=== PATIENT | female | born 1940 | race Caucasian/White ===

== ENCOUNTER 2019-07-31 14:28 | Inpatient (IN) ==
[2019-07-31 14:49] LABS: ALLEN TEST YES; BE -11.3 mmoll (-3.0-3.0); BLOOD TYPE ARTERIAL; HCO3-(ACT) 16.1 mmoll (20.0-26.0); O2(CT) 10.3 mL/dL (15.0-23.0); O2HB 96.1 % (95.0-99.0); PO2(98.6) 182 mmHg (60-100); SAMPLE BLOOD; SAO2 99.9 % (95.0-100.0); THB 7.3 g/dL (11.5-17.4); pH(98.6) 7.47 (7.35-7.45)
[2019-07-31 14:50] LABS: MODALITY NRB; PCO2(98.6) 15 mmHg (35-45)
[2019-07-31] MEDS ORDERED: PROTONIX ONE (15:08)
[2019-07-31 15:09] LABS: BASO# 0.05 X1000 (0.0-0.2); BASO% 0.2 % (0.0-0.8); EOS# 0.01 X1000 (0.0-0.7); HEMATOCRIT 23.7 % (37.0-47.0); HEMOGLOBIN 7.4 g/dL (12.0-16.0); IMM GRAN% 0.7 % (0.0-0.5); LYMPH% 6.5 % (20.5-51.1); MCH 32.2 PG (27-31); MCHC 31.2 g/dL (33-37); MONO# 1.89 X1000 (0.11-0.59); MONO% 6.5 % (1.7-9.3); NEUT# 25.05 X1000 (1.4-6.5); NEUT% 86.1 % (42.2-75.2); PLT 248 X1000 (130-400); RDW 14.5 % (11.5-14.5)
[2019-07-31 15:15] LABS: INR 2.15; PROTIME 24.5 Seconds (11.0-16.0); PTT 24.7 Seconds (22.3-41.8)
--- NOTE | 2019-07-31 15:20 | Diag Imaging Result Doc PS360 ---
EXAM: CHEST-1 VIEW INDICATION: sepsis protocol TECHNIQUE: One view COMPARISON: None. FINDINGS: Electrode pads project over the left chest wall. The lungs are grossly clear. There is no discrete pleural fluid collection or pneumothorax. The cardiomediastinal silhouette and central vasculature are grossly unremarkable accounting for magnification from AP technique. IMPRESSION: No evidence of acute pathology by plain radiograph. Electronically signed by Margarito Mayen 07/31/2019 3:18 PM
[2019-07-31] MEDS ORDERED: ZOSYN 4.5 GM in NS 100 ML IV ONE (15:24)
[2019-07-31] MEDS ORDERED: VANCOMYCIN 1 GM/NS 1 GM/250 ML IVPB IV ONE (15:24)
--- NOTE | 2019-07-31 15:29 | PROVIDER DOCUMENTATION ---
HPI-General Adult - General Chief Complaint: Unresponsive Stated Complaint: respiratory distress Time Seen by Provider: 07/31/19 15:22 Source: family, EMS notes reviewed Allergies/Adverse Reactions: Patient Allergies Allergy/AdvReac Type Severity Reaction Status Date / Time codeine [Codeine] Allergy Intermediate Unknown Verified 06/29/12 13:09 Home Medications: Home Medication List Medication Instructions Recorded Confirmed Last Taken Type Alprazolam [Xanax] 5 mg PO DAILY 06/29/12 06/29/12 07/01/12 05:00 History Cholecalciferol (Vitamin D3) 400 unit PO DAILY 06/29/12 06/29/12 06/30/12 08:00 History [Vitamin D3] Citalopram [Celexa] 40 mg PO HS 06/29/12 06/29/12 06/30/12 19:00 History Esomeprazole Magnesium [Nexium] 40 mg PO HS 06/29/12 06/29/12 06/29/12 History Glucosamine Sulfate Dipot Chlr 2 PO DAILY 06/29/12 06/29/12 06/30/12 08:00 History [Glucosamine] [place]urtis-3S/Dha/Epa/Fish Oil [Fish 1 PO DAILY 06/29/12 06/29/12 06/30/12 08:00 History Oil 1,200 mg Softgel] Valsartan [Diovan] 160 mg PO DAILY 06/29/12 06/29/12 07/01/12 05:00 History - History of Present Illness -Gen Adult Nature of Presenting Problems: Patient was brought in by EMS unresponsive and on non rebreather but making minial effort at breathing and with a pulse. Family later stated that she has a h/o HTN and dementia but had been active until she had a fracture to her left lower extremity recently and her health deteriorated after then. She had been discharged from the hospital, presently in a rehab facility and was brought here today from the facility. Location of Pain/Injury: reports: other (unresponsive) Pain Radiation: reports: no radiation Quality of Pain: reports: none Onset/Duration: reports: this afternoon Timing: reports: still present Context/Activities at Onset: reports: none Modifying Factors: improves with: nothing Review of Systems - Adult - REVIEW OF SYSTEMS - ADULT ROS:: unobtainable per condition Constitutional: reports: joanne Past History - Adult - PAST MEDICAL HISTORY-ADULT Review of Records: reports: Nursing Assessment Review, Medications Reviewed, Social history reviewed & non-contributory. Cardiovascular: reports: HTN Respiratory: reports: denies history Gastrointestinal: reports: denies history Musculoskeletal: reports: orthopedic injury Neurological: reports: dementia Psychiatric: reports: denies history Endocrine/Immune: reports: denies history - FAMILY HISTORY Family History: reviewed, not pertinent - SOCIAL HISTORY Smoking: denies Substance Use: none/never Alcohol Use Frequency: never Physical Exam-General - CONSTITUTIONAL General Appearance: obtunded - HEAD, EARS, NOSE, MOUTH & THROAT HENMT: normocephalic/atraumatic - RESPIRATORY Respiratory: lungs clear, normal breath sounds - CARDIOVASCULAR Cardiovascular: regular rate, rhythm, no edema, JVD - GASTROINTESTINAL (ABDOMEN) Abdominal Exam: soft, no organomegaly - MUSCULOSKELETAL Back Exam: other (splinting of the left lower extremity noted) Extremity: no pedal edema, other (cold distal upper extremities) - SKIN Integumentary: normal color - NEUROLOGIC Neurologic: other (unresponsive but responds to painful stimulus) - PSYCHIATRIC Psych/Mental Status: other (unresponsive) Progress - PLAN OF CARE/RESULTS Progress/Plan/Lab Results: Vital Signs - 8 hr 07/31/19 14:47 Pulse Rate 112 H Respiratory Rate 38 H Blood Pressure 104/67 O2 Sat by Pulse Oximetry 99 Laboratory Results - last 24 hr 07/31/19 07/31/19 07/31/19 14:39 14:46 14:46 WBC 29.10 H RBC 2.30 L Hgb 7.4 L Hct 23.7 L MCV 103.0 H MCH 32.2 H MCHC 31.2 L RDW Std Deviation 14.5 Plt Count 248 MPV 12.0 H Immature Gran % (Auto) 0.7 H Neut % (Auto) 86.1 H Lymph % (Auto) 6.5 L [place] % (Auto) 6.5 Eos % (Auto) 0.0 Baso % (Auto) 0.2 Immature Gran # (Auto) 0.20 H Neut # (Auto) 25.05 H Lymph # (Auto) 1.90 [place] # (Auto) 1.89 H Eos # (Auto) 0.01 Baso # (Auto) 0.05 PT 24.5 H INR 2.15 PTT (Actin FS) 24.7 Specimen Type ARTERIAL Sample Site R RADIAL pH 7.47 H pCO2 15 L* pO2 182 H HCO3 16.1 L Base Excess -11.3 L Oxyhemoglobin 96.1 ABG O2 Sat (Calculated) 10.3 L ABG O2 Saturation 99.9 ABG Carboxyhemoglobin 1.80 ABG Methemoglobin 2.0 H Nikko Test YES A-a O2 Difference 512.0 Total Hemoglobin 7.3 L Lactate 10.90 H* Liter Flow 15.0 Blood Gas Modality NRB FiO2 % 100.0 Orders Category Date Time Status Cardiac Monitoring DIRECTED Care 07/31/19 14:45 Active IV Insertion ORDERED Care 07/31/19 14:45 Completed Notify MD of + Sepsis Screen NOW Care 07/31/19 14:45 Active Notify Physician As Ordered Care 07/31/19 14:45 Active CHEST-1 VIEW [RAD] Stat Exams 07/31/19 14:[address] HEAD W/O CONTRAST [CT] Stat Exams 07/31/19 15:06 Ordered ABG [RESP] Routine Lab 07/31/19 14:39 Completed BLOOD CULTURE [BLDCUL] Stat Lab 07/31/19 14:45 Results BNP [PRO B-NATRIURETIC PEPTIDE] Stat Lab 07/31/19 14:46 Received CBC WITH DIFF [HEME] Stat Lab 07/31/19 14:46 Results CK PROFILE [SP CHEM] Stat Lab 07/31/19 14:46 Received COMPREHENSIVE METABOLIC PANEL [CHEM] Stat Lab 07/31/19 14:46 Received LACTATE, PLASMA [CHEM] Q3H Lab 07/31/19 14:46 Received LACTATE, PLASMA [CHEM] Q3H Lab 07/31/19 17:45 Uncollected LACTATE, PLASMA [CHEM] Q3H Lab 07/31/19 20:45 Uncollected PROTIME WITH INR [COAG] Stat Lab 07/31/19 14:46 Completed PTT [COAG] Stat Lab 07/31/19 14:46 Completed TROPONIN T Stat Lab 07/31/19 14:46 Received TYPE & SCREEN [BBK] Stat Lab 07/31/19 15:23 Ordered URINALYSIS W/POSS RFLX CULT [URINALYSIS] Stat Lab 07/31/19 15:23 Ordered Pantoprazole [Protonix] Med 07/31/19 15:08 Discontinued 40 mg .ROUTE .STK-MED ONE Oxygen Device Stat Oth 07/31/19 14:45 Active Result Diagrams: 08/01/19 04:35 08/01/19 04:35 - REASSESSMENT Reassessment #1 Time Reassessed: 03:45 Status: improving (Patient now able to open her eyes but non verbal, respond to painful stimulus. Family had earlier on discussed DNI, DNR status with Dr Myrick and also discussed that with me at this time. bright red blood noted on patients stool by nurses while cleaning her up) Reassessment #2 Time Reassessed: 04:45 Status: improving (awake, remains non verbal, responds to painful stimulus. Still tachyneic , tarchycardic and hypotensive. Had neg CT head. CTA pulmunary not done due to low GFR. Discussed admission with family and eventually discussed case with Dr Castano.) - XRAY 1 XRAY Study: Chest ( EXAM: CHEST-1 VIEW INDICATION: sepsis protocol TECHNIQUE: One view COMPARISON: None. FINDINGS: Electrode pads project over the left chest wall. The lungs are grossly clear. There is no discrete pleural fluid collection or pneumothorax. The cardiomediastinal silhouette and central vasculature are grossly unremarkable accounting for magnification from AP technique. IMPRESSION: No evidence of acute pathology by plain radiograph. Electronically signed by Margarito Mayen 07/31/2019 3:18 PM) - CT/MRI 1 CT Study: Head ( EXAM: CT HEAD W/O CONTRAST INDICATION: ams TECHNIQUE: This exam was performed using automated exposure control, adjustment of mA or kV according to patient size, and/or use of iterative reconstruction technique. COMPARISON: None. FINDINGS: There is extensive patchy low attenuation in the periventricular and subcortical white matter suggesting advanced microangiopathy. There is a small chronic lacunar infarct versus a Virchow-Kayode space involving the basal ganglion on the right. There is probably encephalomalacia at the anterior temporal lobe on the right and possibly on the left. There is moderate diffuse brain atrophy. There is no definite acute infarct given the limited sensitivity of CT versus MRI. There is no discrete intracranial mass, mass effect, or intracranial hemorrhage. The surrounding soft tissues and bony structures are essentially unremarkable. IMPRESSION: Extensive chronic appearing changes as detailed above. No definite acute intracranial pathology by CT. Electronically signed by Margarito Mayen 07/31/2019 4:23 PM 07/31/19 0707 Interpreting Physician: Margarito Mayen MD Dictated Date/Time: 07/31/19 1620 cc: Vignesh Rushing MD; None,PCP) - CONSULTS/PCP/HOSPITALIST Notification Time Discussed: 05:00 Consult Disposition: Admit (Discussed with Dr castano who accepted admission) Departure - Departure Date of Disposition Decision: 07/31/19 Time of Disposition Decision: 16:57 DIAGNOSIS: Unresponsive, Sepsis associated hypotension GI bleed Qualifiers: GI bleed type/associated pathology: anorectal hemorrhage Qualified Code(s): K62.5 - Hemorrhage of anus and rectum Disposition: ADMITTED INPATIENT 09 Certified Medical Emergency: Emergent Condition: Critical - Critical Care Note This patient required my direct & personal management of CC.: Yes Total Time (mins): 50 Critical Care Statement: This patient required my direct personal management to treat or rule out processes, the absence of which, could potentiallly result in sudden, clinically significant life or limb threatening deterioration. Attestation - Physician/ PRIMITIVO Attestation Patient care was provided by Advanced Practice Provider:: No The physician spent face to face time with patient:: Yes Advanced Practice Provider documentation review:: Supervising physician onsite a nd consulted in the evaluation and care of this patient. The physician did have a face to face encounter with the patient.
[2019-07-31 15:31] LABS: URINE SOURCE CATH
[2019-07-31 15:36] LABS: BILIRUBIN URINE NEGATIVE (NEGATIVE); BLOOD URINE TRACE (NEGATIVE); COLOR YELLOW; GLUCOSE URINE NEGATIVE (NEGATIVE); KETONE URINE NEGATIVE (NEGATIVE); LEUKOCYTES URINE NEGATIVE (NEGATIVE); NITRITE URINE NEGATIVE (NEGATIVE); PH URINE 5.5; PROTEIN URINE TRACE mg/dL (NEGATIVE); TURBIDITY URINE CLEAR (CLEAR); UR EPITHELIAL CELLS <10 /HPF (<10); URINE BACTERIA NEGATIVE /HPF; URINE RBC <10 /HPF (<10); URINE WBC <10 /HPF (<10); UROBILINOGEN URINE 2 mg/dL (NORMAL)
[2019-07-31 15:37] LABS: BANDS 4 % (0-1); LYMPHS 14 % (21-51); MONO 3 % (1-9); NRBC 3 % (0-0); SEGS 79 % (42-75)
[2019-07-31 15:38] LABS: LARGE PLATELETS 2+; MICROCYTOSIS 1+
--- NOTE | 2019-07-31 15:39 | ED EKG INTERP ---
This chart was entered by Jaquan Antunez Scribe, acting as scribe for Vignesh Rushing MD. EKG Interpretation - EKG Time of EKG reading by physician:: 14:48 EKG Read and Signed by:: Vignesh Rushing EKG Interpretation (*Must complete 3 of following elements*): Abnormal Rate: 109 Rhythm: sinus tachycardia Comments: cannot rule out anterior infarct, age undetermined Attestation - Physician/ PRIMITIVO Attestation Patient care was provided by Advanced Practice Provider:: No The physician spent face to face time with patient:: Yes Advanced Practice Provider documentation review:: Supervising physician onsite and consulted in the evaluation and care of this patient. The physician did have a face to face encounter with the patient. This chart was documented by the indicated scribe, (Jaquan Antunez Scribe) and accurately reflects the services I performed and decisions made by me, Vignesh Rushing MD, as attested by the provider's signature.
[2019-07-31 16:02] LABS: ALB/GLOB RATIO 1.4; ALBUMIN 2.7 g/dL (3.5-5.0); CALCIUM 9.4 mg/dL (8.8-10.2); CREATININE 2.9 mg/dL (0.5-0.9); TOTAL BILIRUBIN 1.1 mg/dL (0.20-1.00); TOTAL PROTEIN 4.7 g/dL (6.3-8.3)
--- NOTE | 2019-07-31 16:26 | Diag Imaging Result Doc PS360 ---
EXAM: CT HEAD W/O CONTRAST INDICATION: ams TECHNIQUE: This exam was performed using automated exposure control, adjustment of mA or kV according to patient size, and/or use of iterative reconstruction technique. COMPARISON: None. FINDINGS: There is extensive patchy low attenuation in the periventricular and subcortical white matter suggesting advanced microangiopathy. There is a small chronic lacunar infarct versus a Virchow-Kayode space involving the basal ganglion on the right. There is probably encephalomalacia at the anterior temporal lobe on the right and possibly on the left. There is moderate diffuse brain atrophy. There is no definite acute infarct given the limited sensitivity of CT versus MRI. There is no discrete intracranial mass, mass effect, or intracranial hemorrhage. The surrounding soft tissues and bony structures are essentially unremarkable. IMPRESSION: Extensive chronic appearing changes as detailed above. No definite acute intracranial pathology by CT. Electronically signed by Margarito Mayen 07/31/2019 4:23 PM
[2019-07-31] MEDS ORDERED: NS 1,000 ML IV ONE ×2 (16:35→22:13)
[2019-07-31] MEDS ORDERED: NS 2,000 ML IV ONE (16:51)
[2019-07-31] MEDS ORDERED: NS 500 ML IV ONE (17:56)
--- NOTE | 2019-07-31 20:06 | PROGRESS NOTE ---
DATE: 07/31/2019 ADVANCED CARE DIRECTIVE NOTE: I discussed with the family, which I believe is 2 sons and her I believe and either daughter or [id number]. They do not want any aggressive measures in the setting of life support such as mechanical ventilation or CPR and will allow a natural . That is what they have agreed upon. We will continue to do aggressive measures up until that point. cc: Hieu Castano MD
--- NOTE | 2019-07-31 20:58 | Diag Imaging Result Doc PS360 ---
EXAM: CT ABDOMEN/PELVIS W/O CONTRAST INDICATION: septic shock TECHNIQUE: This exam was performed using automated exposure control, adjustment of mA or kV according to patient size, and/or use of iterative reconstruction technique. COMPARISON: None. FINDINGS: There is bibasilar atelectasis, more prominent on the left and there is a small left pleural effusion. There is a small to moderate-sized pericardial effusion. The liver, gallbladder, spleen, and pancreas are unremarkable. There is mild nodularity of the left adrenal gland, statistically most likely underlying adrenal adenoma. The kidneys are somewhat atrophic but are essentially unremarkable, otherwise. There is a Lilly catheter in the urinary bladder and the bladder is nondistended. The reproductive tract is grossly unremarkable as imaged. There is marked rectal wall thickening and only slightly milder wall thickening involving the distal sigmoid colon. This suggests severe proctitis/colitis. There is severe dilation of the transverse colon measuring over 6 cm in diameter. Developing toxic megacolon should be considered. However, some haustral folds remain in this dilated segment. The appendix is normal. There is mild distention of the stomach and there is fluid in the distal esophagus suggesting reflux. There is no small bowel distention. There is trace free fluid layering in the pelvis and tracking around the spleen. There is no evidence of acute osseous abnormality. IMPRESSION: 1.Severe rectal wall thickening and only slightly less severe thickening of the distal sigmoid colonic wall indicating severe proctitis/colitis. 2.Marked distention of the transverse colon. Developing toxic megacolon should be considered. However, there is still haustral folding in this dilated segment. 3.Trace ascites tracking around the spleen and layering in the pelvis. 4.Small to moderate-sized pericardial effusion. 5.Trace left pleural effusion and left basilar atelectasis. Electronically signed by Margarito Mayen 07/31/2019 8:55 PM
[2019-07-31] MEDS ORDERED: VANCOMYCIN IV PER PHARMACY MISC SCH (22:13)
[2019-07-31] MEDS ORDERED: PROTONIX IV SCH (22:13)
[2019-07-31] MEDS ORDERED: SODIUM CHLORIDE 0.9% INJ SCH (22:13)
[2019-07-31] MEDS: ZOSYN 2.25 GM in NS 50 ML IV SCH (22:27)
--- NOTE | 2019-07-31 23:58 | HISTORY AND PHYSICAL ---
HISTORY OF PRESENT ILLNESS: This is a 79-year-old female who came in from the [facility] at [facility] with minimal responsiveness, respiratory distress. Initially, it was not known who she is. Patient is a patient with significant dementia per the family. She has actually been doing fairly well, according to them. She had surgery at [place] for a I believe a tibia fracture and she had a gucci placed I think per Dr. Vázquez and was treated as such. Like I said, she had been in her usual state of health and then today she has become unresponsive and confused, hypoxic. She has multiple things going on, anemia, acute renal failure, acute respiratory failure, effectively septic but unclear what her source is. Urine does not look infected. Chest x-ray is clear, but she is clearly in respiratory failure unfortunately. So she was admitted for acute hypoxic respiratory failure, sepsis, symptomatic anemia, acute kidney injury with a recent tibia fracture repair. PAST MEDICAL HISTORY: Supposedly only dementia, hypertension. No diabetes. No heart disease. Reflux it looks like. PAST SURGICAL HISTORY: Again, she has had the tibia fracture. It looks like she has had a lumpectomy so she has had a history of breast cancer; family was not descriptive of that but based on our records here per Dr. Bernard. SOCIAL HISTORY: No tobacco. No ethanol. She typically lives at home, is not in assisted living. She has got fairly significant dementia but is able to be managed at home, is able to get up and around. ALLERGIES: Codeine. MEDICATIONS: Her medications have not been verified but are Celexa 40, Diovan 160, fish oil 1 daily, glucosamine 2 daily, Nexium 40 at bedtime, vitamin D3 of 400 units daily, Xanax 0.25. We do not frequency, maybe daily. REVIEW OF SYSTEMS: Constitutional: There has not been any weight loss, but she has very poor appetite and she is very difficult to stay hydrated. Cardiovascular: No chest pains. Pulmonary: As described. Gastrointestinal: No nausea, vomiting, diarrhea. Hematologic: No bleeding. Genitourinary: No dysuria. Neurologic: No syncopal episodes. No weakness episodes prior to the onset of her distress today. Otherwise, negative 10 point review of system. PHYSICAL EXAMINATION: VITAL SIGNS: Blood pressure 104/67, heart rate is 112, respiratory rate of 38, temperature is 101.3 degrees. She is 99% on a non-rebreather. GENERALLY: Well-developed female appears in moderate distress, is not responsive although opens eyes and tracks. HEENT: Eye exam: Pupils equal, round, reactive to light. Extraocular movements were intact. Sclerae are anicteric. CARDIOVASCULAR: She is tachycardic with a loud pronounced S1, S2. She has a blowing 3/6 holosystolic murmur best heard at the apex. GASTROINTESTINAL: Soft, nontender, nondistended. Bowel sounds are positive. NEUROLOGIC: Limited but there were no focal deficits, but again, very minimally responsive. MUSCULOSKELETAL: Difficult to assess, but again, at least 3/5 in all 4 extremities. SKIN: There were no noted rashes. Her incision sites looked good. Did not look like there was clearly any infection associated with that. She did have some dark, kind of ecchymotic changes to her toes. She apparently has some heel ulcers that were covered on the right heel. LABORATORY DATA: Her hemoglobin and hematocrit are 7 and 23 with an MCV of 103 with a white count of 29,000. Her INR is 2. Her D-dimer is 9.7. Blood gas, pH 7.47, pCO2 of 15, PaO2 of 182. BUN and creatinine are 74 and 2.9, glucose of 152. T bilirubin was 1.1. ProBNP was 24,501. Chest x- ray was read as clear. Head CT showed significant atrophy but no acute stroke. ASSESSMENT: 1. This is a 79-year-old female with recent surgeries, severe dementia, presenting essentially with shock. Presume sepsis although unclear source at this point. It is possible it is still pneumonia that has just not been well visualized on chest x-ray especially with her level of hypoxia. It could also be related to postop infection. We have obtained blood and urine cultures. She has been started on broad-spectrum antibiotics, which I will continue the vancomycin and Zosyn. I think that is appropriate in this setting. We will get CT of her chest without contrast to better evaluate for pneumonia. We will screen for influenza. We will get Orthopedics to evaluate her lower extremity to see if there is any concern over infection related to her surgery which will have to be most likely handled with her primary surgical service. She is under the sepsis protocol getting serial lactates and continue hydration for the time. 2. Acute kidney injury. It is probably secondary to sepsis. We are going to hold her NIK/ARB. Be careful with vancomycin in this setting. We may even switch her to daptomycin, although now we are going to leave her on the vancomycin because of concerns over pulmonary infection potentially. Continue hydration. Check urine electrolytes, renal ultrasound and follow. 3. Acute hypoxic respiratory failure. Again, a primary issue or secondary issue due to sepsis. We also have to consider the possibility of a VTE. It is not clear that she has been on any anticoagulation. Family is not aware of them. I do not have records that show that she was on any DVT prophylaxis or treatment. We will get lower extremity Dopplers and we will get a CT. We will evaluate for large clots even without contrast and V/Q scan if necessary and we will at least start DVT prophylaxis in this setting. 4. Dementia. Encephalopathy less likely secondary to multiple issues going on at once and with her underlying dementia. 5. Anemia likely related to acute blood loss. We will go ahead and transfuse and follow closely. I am not entirely sure why she is coagulopathic at this time. Her platelets are intact so we will continue to follow closely. This is a service admission. I do not think she has a local provider. TIME: 32 minute critical care time for acute respiratory failure, sepsis, and volume resuscitation. cc: Hieu Castano MD MTDD
[2019-08-01] MEDS ORDERED: VANCOMYCIN 500 MG/NS 500 MG/100 ML IVPB IV ONE ×2 (00:30→12:30)
[2019-08-01] MEDS: ZOSYN 2.25 GM in NS 50 ML IV SCH (04:00)
[2019-08-01 05:15] LABS: ALLEN TEST YES; BE -10.2 mmoll (-3.0-3.0); BLOOD TYPE ARTERIAL; PO2(98.6) 212 mmHg (60-100); SAMPLE BLOOD; pH(98.6) 7.42 (7.35-7.45)
[2019-08-01 05:16] LABS: MODALITY NRB; PCO2(98.6) 18 mmHg (35-45)
[2019-08-01 05:35] LABS: BASO# 0.21 X1000 (0.0-0.2); BASO% 1.3 % (0.0-0.8); CREATININE 3.3 mg/dL (0.5-0.9); EOS# 0.01 X1000 (0.0-0.7); EOS% 0.1 % (0.0-10.0); HEMATOCRIT 25.9 % (37.0-47.0); HEMOGLOBIN 8.4 g/dL (12.0-16.0); IMM GRAN# 0.46 X1000 (0.0-0.04); IMM GRAN% 2.8 % (0.0-0.5); LYMPH# 2.77 X1000 (1.2-3.4); LYMPH% 17.1 % (20.5-51.1); MCH 31.1 PG (27-31); MCHC 32.4 g/dL (33-37); MCV 95.9 FL (81-99); MONO# 1.57 X1000 (0.11-0.59); MONO% 9.7 % (1.7-9.3); MPV 12.3 FL (7.4-10.4); NEUT# 11.18 X1000 (1.4-6.5); PLT 138 X1000 (130-400); POTASSIUM 4.8 mmol/L (3.5-5.1); RDW 16.1 % (11.5-14.5)
[2019-08-01] MEDS ORDERED: LOVENOX SUBQ SCH (06:00)
[2019-08-01 06:25] LABS: CALCIUM 7.8 mg/dL (8.8-10.2)
[2019-08-01 07:13] LABS: ANISOCYTOSIS 1+; BANDS 19 % (0-1); LYMPHS 7 % (21-51); MONO 3 % (1-9); NRBC 23 % (0-0); POLYCHROM OCCASIONAL; SEGS 69 % (42-75)
[2019-08-01] MEDS ORDERED: MAXIPIME 2 GM in NS 100 ML IV SCH (07:30)
[2019-08-01] MEDS ORDERED: MAXIPIME IV SCH (07:39)
[2019-08-01] MEDS ORDERED: NS IV SCH (07:39)
[2019-08-01] MEDS ORDERED: MAXIPIME 1 GM in NS 50 ML IV SCH (08:00)
[2019-08-01] MEDS: FLAGYL 500 MG/NS 500 MG/100 ML IVPB IV SCH ×2 (08:12→14:44)
--- NOTE | 2019-08-01 08:23 | EKG Report ---
Test Performed on : 07/31/2019 2:48:31 PM Test Reason : unresponsive, respiratory distress Blood Pressure : / mmHG Vent. Rate : 109 BPM Atrial Rate : 109 BPM P-R Int : 130 ms QRS Dur : 074 ms QT Int : 326 ms P-R-T Axes : 050 031 069 degrees QTc Int : 439 ms Sinus tachycardia. Cannot rule out Anterior infarct (cited on or before 29-JUN-2012) Abnormal ECG When compared with ECG of 29-JUN-2012 12:50, Vent. rate has increased BY 50 BPM Unconfirmed Result
--- NOTE | 2019-08-01 08:24 | EKG Report ---
Test Performed on : 07/31/2019 3:32:00 PM Test Reason : repeat ekg for respiratory distress/unresponsive Blood Pressure : / mmHG Vent. Rate : 107 BPM Atrial Rate : 107 BPM P-R Int : 128 ms QRS Dur : 078 ms QT Int : 372 ms P-R-T Axes : 049 027 069 degrees QTc Int : 496 ms Sinus tachycardia. with premature atrial complexes. Otherwise normal ECG When compared with ECG of 31-JUL-2019 14:48, (Unconfirmed) premature atrial complexes. are now present QT has lengthened Unconfirmed Result
[2019-08-01] MEDS ORDERED: HEPARIN IV PRN (09:05)
[2019-08-01] MEDS ORDERED: HEPARIN IV ONE ×3 (09:05→10:15)
[2019-08-01] MEDS ORDERED: HEPARIN 25,000 UNITS/D5W 25,000 UNIT/250 ML IV.SOLN IV SCH (09:15)
--- NOTE | 2019-08-01 09:59 | Diag Imaging Result Doc PS360 ---
EXAM: LOWER LEG-LEFT 08/01/2019 HISTORY: recent surgery/fracture TECHNIQUE: Left lower leg three views COMMENT: There has been internal fixation of a fracture of the distal tibia and fibula with intramedullary gucci in the tibia and a bone plate and screws in the distal fibula. IMPRESSION: Postsurgical changes. Electronically signed by Homer Castañeda 08/01/2019 9:56 AM
[2019-08-01] MEDS ORDERED: NON-FORMULARY MED PR SCH (10:00)
[2019-08-01 10:19] LABS: INR 2.02; PROTIME 23.3 Seconds (11.0-16.0); PTT 29.9 Seconds (22.3-41.8)
[2019-08-01] MEDS ORDERED: ATIVAN IV ONE (10:33)
--- NOTE | 2019-08-01 10:39 | CONSULTATION ---
DATE OF CONSULTATION: 08/01/2019 CONCLUSION: I think the patient may have Clostridium difficile colitis with possible toxic megacolon forming. RECOMMENDATIONS: I have discontinued IV vancomycin and Zosyn. I have started the patient on cefepime 1 gram IV every 12 hours, and Flagyl 500 mg IV every 6 hours. Also, I have ordered vancomycin enemas to consist of 500 mg of vancomycin in 100 mL of normal saline to be given as an enema every 6 hours. The vancomycin enemas are necessary because the patient is vomiting and cannot take PO or tube medications. DISCUSSION: The patient is unable to provide a history, and no family member is present. The information I have is from the computer. The patient came from the half-way with an altered mental status, and she seemed to be in respiratory distress. She recently had surgery at [facility] for a tibia fracture, at which time a gucci was placed by Dr. Vázquez. The patient had become unresponsive and confused and hypoxic. The patient's CBC showed a white count initially of 29,100, and the most recent white blood cell count is 16,200, hemoglobin is 8.4, platelet count is 138,000. Blood gases show a pH of 7.42, a PO2 of 212, a pCO2 of 18. Creatinine is 3.3. GFR is 13. Swab for influenza is negative. Blood cultures are pending. CT scan of the abdomen and pelvis showed severe proctitis and colitis with possible development of toxic megacolon. Chest x- ray is clear. CT scan of the head had multiple chronic abnormalities, but nothing acute. PAST MEDICAL HISTORY: Positive for dementia, hypertension, and possible gastroesophageal reflux disease. PAST SURGICAL HISTORY: Positive for tibia fracture, and the patient also had a lumpectomy for breast cancer. SOCIAL HISTORY: The patient does not smoke cigarettes or drink alcoholic beverages. She typically lives at home. She has dementia, but is able to be managed at home, and get up and be around. ALLERGIES: The patient's only allergy is codeine. MEDICATIONS: Include Celexa, Diovan, glucosamine, Nexium, vitamin D, and Xanax. REVIEW OF SYSTEMS: Unable to be obtained. PHYSICAL EXAMINATION: Vital Signs: Temperature was 101.8 degrees, it is 98 now, pulse 98, respirations 36, blood pressure 81/57. The patient weighs 166 pounds. General: This is an ill- appearing, elderly female. She is breathing very rapidly. She seems to be in acute distress. HEENT: No drainage was noted from the nose or ears. Neck: The patient did not seem to have any pain when I passively moved her neck. There was not any severe stiffness. Lungs: Clear to auscultation. Cardiovascular: Heart rate is regular. Abdomen: Soft, but very tender. I did not hear any bowel sounds. Neurologic: The patient seems to be in a delirium. She is breathing very fast. She seems to be in acute respiratory distress. She does not follow any requests I asked her to do, such as moving her extremities or closing her eyelids. Integument: No rash noted. Thank you for the consult. cc: Ian Cespedes MD MTDD
[2019-08-01] MEDS ORDERED: MORPHINE IV PRN (10:44)
[2019-08-01] MEDS ORDERED: ATIVAN IV PRN (10:44)
[2019-08-01] MEDS ORDERED: ATROPINE SYRINGE IV ONE (11:53)
[2019-08-01] MEDS ORDERED: LR 1,000 ML IV ONE (11:56)
[2019-08-01] MEDS ORDERED: DOPAMINE 800 MG/D5W 800 MG/500 ML IV.SOLN IV SCH (12:00)
[2019-08-01] MEDS ORDERED: ATROPINE SYRINGE ONE (12:01)
--- NOTE | 2019-08-01 14:41 | ORTHOPAEDICS CONSULTATION ---
DATE: 08/01/2019 REASON FOR CONSULTATION: Recent left tibia fracture with pinning surgery. PAST MEDICAL HISTORY: Dementia, hypertension, no known diabetes or heart disease. PAST SURGICAL HISTORY: Left tibia pinning and breast lumpectomy. MEDICATIONS: Celexa 40 mg, Diovan 160 mg, fish oil 1 daily, glucosamine 2 daily, Nexium 40 mg at bedtime, vitamin D3 400 international units daily, Xanax 0.25 mg of which the frequency is unknown. ALLERGIES: Codeine. SOCIAL HISTORY: The patient typically lives at home but after her fall and resulting surgery she was placed in a rehab facility where she has been since that time. FAMILY HISTORY: Noncontributory. REVIEW OF SYSTEMS: According to patient's H&P done by Dr. Castano: Constitutional: She has not had any weight loss and had very poor appetite. Cardiovascular: No chest pains. Pulmonary: She has had some hypoxia and shortness of breath. GI: No nausea, vomiting, or diarrhea. Hematology: No bleeding. Neurologic: She did have an episode of unresponsiveness, but no prior episodes of weakness. This information was obtained from H and P as there was no family at the bedside and the patient was unresponsive during exam. CHIEF COMPLAINT: History of unresponsiveness and respiratory distress at home with recent left tibia surgery. HISTORY OF PRESENT ILLNESS: Ms Maldonado is a 79-year-old female who came in from [facility] with minimal responsiveness and respiratory distress. The patient does have a past medical history of dementia per her family, and recently had a surgery on her left tibia due to fracture though we are not exactly sure when the surgery occurred. The surgery was done at [facility] by Dr. Vázquez. She has been admitted to the ICU for anemia, acute renal failure, acute respiratory failure and sepsis with unclear source at this time. Orthopedics was consulted due to the recent left tibia surgery. PHYSICAL EXAM: General: Ms. Maldonado is a 79-year-old female who is lying in bed at this time and appears to be having some respiratory distress. She is awake and alert though not oriented. Vital Signs: Temp of 97.3 degrees, heart rate of 93, respiratory rate of 37, and her oxygen is 100% via non-rebreather. HEENT: She is normocephalic and atraumatic. Respiratory: She is having some labored breathing at this time. Cardiovascular: Regular rate and rhythm. Extremity: There is a heel protector to patient's right heel from a presumed pressure ulcer. Her left leg was in a posterior short-leg splint, which we removed to view her incisions. She has an incision to her distal upper leg just superior to her knee. It is healing well without signs of infection at this time. She also has a smaller incision just inferior to her left knee. It is also healing well without signs of infection at this time. Prineo is in place. She also has a larger incision to the lateral left ankle that has Prineo overlying it and it is it appears to be healing well without secondary signs of infection at this time. She also has a smaller incision to her left medial ankle that also has Prineo overlying it and has no signs of infection as well. None of the incisions appear to have any redness surrounding them to suggest a secondary infection at this time. She does not have any sutures or benjamin and all wounds and closed with Prineo. She does have some bruising and swelling to her left lower foot and she also has a developing pressure ulcer to that left heel as well. LABS: Her white count today was noted to be 16.2, which is decreased from yesterday when it was 29. Her hemoglobin and hematocrit is 8 and 25, which is also improved from yesterday when it was 7 in 23. Labs are being monitored by the hospitalist service. IMAGING: Left tib-fib x-ray revealed an intramedullary gucci in the left tibia that is in good position and a plate and screw to the left distal fibula that is also in good position. ASSESSMENT: 79-year-old female with anemia, sepsis, acute renal failure, and acute respiratory failure that is status post left tibia intramedullary gucci. PLAN: Her posterior short-leg splint will be replaced today. We will also place a heel protector on her left heel under her splint. She will be nonweightbearing at this time until she is more medically stable. No acute problems from an orthopedic stand point. Dictated by NICKI Head for Luis Nolan MD cc: Luis Nolan MD [facility] SYSTEM[facility]
[2019-08-01 15:11] VITALS: BP 62/47
--- NOTE | 2019-08-01 15:13 | CONSULTATION ---
DATE OF CONSULTATION: 08/01/2019 HISTORY OF PRESENT ILLNESS: Ms. Marilia Maldonado is a 79-year-old white female, hospitalized in our ICU bed 9 with what appears to be Clostridium difficile colitis. She was admitted with sepsis, and a CT scan documents thickened rectal wall and sigmoid colon. We were asked to see her because of toxic megacolon. Recently, she had an orthopedic procedure to her lower extremity. Her family is at the bedside and wants comfort care. PAST MEDICAL HISTORY: Dementia, hypertension, gastroesophageal reflux disease. PAST SURGICAL HISTORY: Tibia fracture with recent orthopedic procedure, breast cancer. SOCIAL HISTORY: She is not a smoker. She has dementia, and she is managed at home. ALLERGIES: Codeine. MEDICATIONS: Celexa, fish oil, glucosamine, Nexium, vitamin D3, Xanax. REVIEW OF SYSTEMS: A 14-point review of systems was performed with the family. Diarrhea and mental status changes were the only positives. PHYSICAL EXAMINATION: General: Ms. Maldonado is in our ICU, unresponsive. Vital Signs: It has been reported that her heart rate did get down to the 30s, but now it is 118. She is hypotensive at 61/30. O2 saturation 99%. She is not on the ventilator. Heart: Regular rate. Lungs: Clear. Abdomen: Distended. It is hard to tell whether it is tender. Rectal/Vaginal: Not performed. Extremities: I could not palpate any peripheral pulses. She has no significant peripheral edema. Neurological: She is sedated. IMAGING AND LABORATORY DATA: CT scan with the findings above. Her white blood cell count has improved on IV antibiotics, 29 to 16, hematocrit is 26%. She is in acute renal failure. BUN and creatinine are 88 and 3.3. Her lactate is 6.7. Her base deficit is 10.2. PH is 7.42. IMPRESSION: Clostridium difficile colitis with possible progression towards toxic megacolon. PLAN: I spoke with her family at the bedside, and they want comfort measures. She is DO NOT RESUSCITATE. They do not want her to proceed with any surgery. She is on Flagyl and Maxipime per Dr. Cespedes. cc: Luz Marina Bernard MD
--- NOTE | 2019-08-01 16:17 | PROGRESS NOTE ---
DATE: 08/01/2019 SUBJECTIVE: Patient has no major complaints. OBJECTIVE: General: As described she is pale, ashen, unresponsive. Will not wake up. Will not stir. She is breathing, tachypneic, almost agonal breaths. Vital Signs: Blood pressure is 79/57, heart rate of 108, respiratory rate 25, temperature of 97.3 degrees. Cardiovascular: Tachy. Pulmonary: Bilateral breath sounds, clear to auscultation. GI: Soft, nontender, nondistended. Bowel sounds were positive. PLAN/ASSESSMENT: 1. 79-year-old female with Clostridium difficile colitis, toxic megacolon, who has since progressed and who is expiring. I got called to see her today she became pulseless. We gave her atropine and dopamine to try to support her and her blood pressure did come back for a short time there. Thought she was not likely to survive the events and I discussed with the family that she is not likely to survive this event in either case either. Because of her comorbidities, dementia she would not be able to find survive surgery I think or postop course after partial or near total colectomy because of her toxic megacolon. The family has not elected to do anything more. They do not want any vasoactive substances. Initially, they agree to it but no vasoactive substances to keep her alive, allow her to have a natural . We will continue the current supportive measures and see how she does. 2. Deep venous thrombosis which probably associated with recent surgery. She is on a heparin drip. We will continue to follow. We were not able to get a chest CT, it was ordered with contrast. DISPOSITION: Patient is critically ill. I do not think she is going to do much better unfortunately, but we are proceeding with end of life care and her mortality is likely within next 12 and 24 hours, nearly 100%. cc: Hieu Castano MD
--- NOTE | 2019-08-02 14:55 | SEPSIS: TISSUE PERFUSION ASSMT ---
Sepsis: Tissue Perfusion Asssc - Physical Exam Assessment Date: 07/31/19 Time Assessment Initialized: 20:00 Vital Signs: Last Vital Signs Temp 97.3 F L 08/01/19 08:24 Pulse 97 H 08/01/19 15:01 Resp 34 H 08/01/19 15:01 BP 62/47 08/01/19 15:01 Pulse Ox 90 L 08/01/19 15:01 Height 5 ft 4 in Weight 156 lb 1.6 oz 08/02/19 14:53 100 100/70 rr:20 Lung Sounds:: other Heart Sounds:: Other Capillary Refill Time: Greater Than 2 Seconds Peripheral Pulse Evaluation:: radial (R): 2+, radial (L): 2+, dorsalis-pedis (R): 1+, dorsalis-pedis (L): 1+, posterior tibialis (R): 2+, posterior tibialis (L): 2+ Skin Exam:: pallor - Impression Impression:: Tissue Perfusion Adequate - Plan Plan:: See Orders
--- NOTE | 2019-08-02 19:04 | Extremity Venous Study ---
PROCEDURE NAME: Venous U/S Bilateral Legs - 07/31/2019 PROCEDURE: Bilateral lower extremity venous duplex and color flow imaging study using the [email or web address] Vivid E9 ultrasound system with a 9L-D transducer. REFERRING PHYSICIAN: Dr. Castano MILIEU MANAGER: Felisha Shultz RVT. INDICATIONS: The patient has hypoxia postoperatively, rule out pulmonary embolism and deep venous thrombosis. The patient has severe dementia. FINDINGS: This was a difficult scan because the patient was uncooperative. There appears to be acute deep venous thrombosis involving the left common femoral vein and the superficial femoral vein on the left. There is also superficial venous thrombosis involving the left saphenofemoral junction and the great saphenous vein. The right common femoral vein and its branches, deep and superficial femoral veins, were satisfactorily imaged. They had flow through them and were compressible. The right popliteal vein and the deep veins of the right knee were all compressible and had flow through them. The superficial veins of the right lower extremity were compressible throughout their length. INTERPRETATION: Acute deep venous thrombosis involving the left lower extremity as described above. There is also superficial venous thrombosis involving the left great saphenous vein. cc: MD Hieu Mosquera MD
[2019-08-03] MEDS ORDERED: VANCOMYCIN 1,200 MG in NS 250 ML IV SCH (18:00)
--- NOTE | 2019-08-17 11:01 | DISCHARGE SUMMARY ---
ADMISSION DATE: 07/31/2019 DISCHARGE DATE: 08/01/2019 DISCHARGE DIAGNOSES: 1. Clostridium difficile colitis, severe. 2. Toxic megacolon. 3. Septic shock related to Clostridium difficile colitis. 4. Deep vein thrombosis of the left lower extremity, left common femoral vein, superficial femoral vein and left saphenofemoral junction. 5. Anemia associated with blood loss. 6. Acute kidney injury. ADMISSION DIAGNOSES: 1. Acute kidney injury. 2. Acute hypoxic failure. 3. Possible sepsis. 4. Dementia. 5. Anemia. HOSPITAL COURSE: Briefly this was a 79-year-old female, who came from the longterm rehab with respiratory distress and diminished response. She had recently had a tibiofibular fracture corrected at [place], and she was discharged to longterm here locally, I think [place] or [place] because it was closer to home. She had been doing okay until this morning according to the family. I did not see that she had been placed on anticoagulation or DVT prophylaxis in her longterm records as far as medications. She came in with a hemoglobin and hematocrit of 7 and 23. She had a creatinine of 2.9. Her INR was elevated. All her workup was negative initially, except a head CT was negative, although she had significant dementia. She ended up having a venous Doppler that again showed a large DVT in her left common femoral and superficial femoral. Her CT of her bowel showed significant proctitis and colitis, and distention of the transverse colon. She had been empirically placed on broad-spectrum antibiotics. I did get an Infectious Disease consult, and Dr. Cespedes felt like she likely had C difficile, which was not obvious on admission. Initially 29,000 white count and then a 16,000. Her Clostridium difficile was positive obviously for antigen and toxin. Flu was negative. Blood cultures were negative. She had been placed on antibiotics for putative pneumonia when she was discharged and at rehabilitation; so, she was at risk unfortunately. Orthopedics was consulted just for postop care of her recent surgery. She was volume resuscitated, but she still had fairly high lactate; I mean it went from 10.9 to 6. We continued IV fluids. Family had decided though that they do not want to do more aggressive measures than what we were currently doing; did not want her on a ventilator, did not want her on little life-sustaining therapies. She was made a DNR 1; that was actually on admission. Somewhere around noon I think, the patient was given atropine and dopamine, but she almost became completely positive. The patient was placed on dopamine, and after further discussion they elected to stop the dopamine and allow a natural . At 1559 hours,the patient became asystolic and passed. CAUSE OF : [place] to be profound septic shock from Clostridium difficile colitis, toxic megacolon related to recent antibiotic use for pneumonia. She also had a large deep vein thrombosis; it is entirely possible she may have had a pulmonary embolism, but she was never stable enough to get a scan of her lungs and she had significant renal dysfunction. A V/Q was not an option either because she would not cooperate with a V/Q scan. We started anticoagulation that morning once we knew that she had a DVT though. She was placed on a heparin drip, but overall I think she just had profound septic shock related to Clostridium difficile with toxic megacolon, possibly even ischemic gut, which she would not have been able to survive surgery in the state she was in. TIME SPENT: Greater than 35 minute critical care time. Family aware of her condition and they were prepared for what was happening. cc: Hieu Castano MD
== END 2019-08-01 15:59 | disposition expired | DRG 871 ==
LOC: ED 14:28 → ICU 20:20
PROVIDERS: ATTEND Internal Medicine